=== PATIENT | male | born 1985 | race Caucasian/White ===

== ENCOUNTER 2017-08-15 19:57 | Emergency (ER) | payer BC ==
[~2017-08-15 19:57] MED LIST: AMO500 PO; CYCL10TA29 PO; FLUT16SP20 NS; HYDR-389 PO; NO ROUTINE MEDS; NO RTN MEDS; PER PO
--- NOTE | 2017-08-15 20:00 | ER Report ---
History and Physical Time Seen By MD: 20:00 HPI/ROS CHIEF COMPLAINT: Right leg pain HISTORY OF PRESENT ILLNESS: 31-year-old male presents ambulatory to the ER complaining of right leg pain. Patient's had right leg pain for one day. REVIEW OF SYSTEMS: Respiratory: No cough, no dyspnea. Cardiovascular: No chest pain, no palpitations. Gastrointestinal: No vomiting, no abdominal pain. Musculoskeletal: As above Allergies: Coded Allergies: ibuprofen (Verified Allergy, Mild, 01/31/13) Home Meds Active Scripts Hydrocodone Bit/Acetaminophen (NORCO 10-325 TABLET) 1 Each Tablet, 1 EACH PO Q4- 6H Y for PAIN, #12 Prov:KAIA DESOUZA DO 08/15/17 Methocarbamol (ROBAXIN-750) 750 Mg Tablet, 1-2 TAB PO TID Y for muscle spasm relief, #20 Prov:KAIA DESOUZA DO 08/15/17 Prednisone (PREDNISONE) 20 Mg Tablet, 20 MG PO QDAY for reduce inflammation for 7 Days, #9 2 by mouth daily 3 days then 1 by mouth daily 3 days Prov:KAIA DESOUZA DO 08/15/17 Reported Medications Lisinopril (LISINOPRIL) 40 Mg Tablet, 40 MG PO QDAY, TAB 08/15/17 Discontinued Reported Medications [No Rtn Meds] No Conflict Check, 0 Refills 03/30/09 Discontinued Scripts Cyclobenzaprine Hcl (CYCLOBENZAPRINE HCL) 10 Mg Tablet, 10 MG PO TID, #30 TAB TAKE 1 TABLET BY MOUTH THREE TIMES A DAY Prov:NADEEM MENDOSA [employer]IV[employer] ATTENDANT 04/16/13 Reviewed Nurses Notes: Yes Old Medical Records Reviewed: Yes Hx Smoking: Yes Exposure to Second Hand Smoke?: Yes Hx Substance Use Disorder: No Hx Alcohol Use: No Constitutional Vital Sign - Last 24 Hours 08/15/17 08/15/17 20:02 20:34 Temp 98.5 Pulse 92 92 Resp 16 16 B/P (MAP) 146/106 151/114 (126) Pulse Ox 94 93 O2 Delivery Room Air Room Air Physical Exam General Appearance: The patient is alert, has no immediate need for airway protection and no current signs of toxicity.. Vital signs stable, afebrile, pulse ox normal HEENT: Pupils equal and round no injection. Pharynx redness or exudate, membranes are moist Respiratory: Chest is non tender, lungs are clear to auscultation. Cardiac: regular rate and rhythm Gastrointestinal: Abdomen is soft and non tender, no masses, bowel sounds normal. Musculoskeletal: Neck: Neck is supple and non tender. Back:, There is no tenderness in the midline. There is tenderness over the course of the right sciatic nerve. There is equivocal straight leg raise on the right. Extremities have full range of motion and are non tender. Skin: No rashes or lesions. DIFFERENTIAL DIAGNOSIS: After history and physical exam differential diagnosis was considered for back pain including but not limited to muscular pain, herniated disc, spine fracture, intra-abdominal causes, sciatica and urinary tract infection. Medical Decision Making ED Course/Re-evaluation ED Course Patient was admitted to an examination room. H&P was done. The differential diagnoses was considered. On clinical examination. Patient has a nonfocal neurologic examination. He has provocative signs for right sciatica. He has no history of previous back problems that would suggest a herniated disc. Patient's advised to conservative treatment plan. He placed on prednisone ibuprofen, Robaxin and hydrocodone for pain relief. He's advised to conservative treatment plan. He is advised to follow-up with his primary care if unimproved in 3-5 days. Decision to Disposition Date: August 15, 2017 Decision to Disposition Time: 20:12 Depart Departure Latest Vital Signs Vital Signs Date Time Temp Pulse Resp B/P (MAP) Pulse Ox O2 Delivery O2 Flow Rate FiO2 08/15/17 20:34 92 16 151/114 (126) 93 Room Air 08/15/17 20:02 98.5 Impression: Primary Impression: Sciatica of right side Condition: Improved Disposition: HOME OR SELF-CARE Referrals: ALESHA NI MD New Scripts Hydrocodone Bit/Acetaminophen (NORCO 10-325 TABLET) 1 Each Tablet 1 EACH PO Q4-6H Y for PAIN, #12 Prov: KAIA DESOUZA DO 08/15/17 Methocarbamol (ROBAXIN-750) 750 Mg Tablet 1-2 TAB PO TID Y for muscle spasm relief, #20 Prov: KAIA DESOUZA DO 08/15/17 Prednisone (PREDNISONE) 20 Mg Tablet 20 MG PO QDAY for reduce inflammation for 7 Days, #9 2 by mouth daily 3 days then 1 by mouth daily 3 days Prov: KAIA DESOUZA DO 08/15/17 Patient Instructions: Sciatica (ED) Additional Instructions: Take Aleve 2 tablets twice daily with food Apply heating pad to the affected area Follow-up with Dr. Medley if unimproved in 3-5 days KAIA DESOUZA DO August 15, 2017 20:00
[2017-08-15] MEDS ORDERED: LISI-374 PO (20:07)
[2017-08-15] MEDS ORDERED: METHOCARBAMOL 500 MG TAB PO ONE (20:10)
[2017-08-15] MEDS ORDERED: ACET/HYDROC 5/325MG TH ER ONLY 2 TAB/BOTTLE PO ONE (20:10)
[2017-08-15] MEDS ORDERED: predniSONE 20 MG TAB PO ONE (20:10)
[2017-08-15] MEDS ORDERED: PRED20TA6 PO (20:15)
[2017-08-15] MEDS ORDERED: METH-543 PO (20:15)
[2017-08-15] MEDS ORDERED: HYDR-4305 PO (20:15)
[2017-08-15 20:34] VITALS: BP 151/114
== END 2017-08-15 20:30 | disposition home or self-care (01) ==
LOC: ER 20:14
DX: M54.31 Sciatica, right side (principal)
CPT/HCPCS: 99282; J7512